=== PATIENT | male | born 1990 | race Caucasian/White ===

== ENCOUNTER 2020-06-09 18:36 | Emergency (ER) | payer BC ==
[2020-06-09] MEDS: Bacitracin Oint 1 GM U/D Packet TOP ONE (19:00)
[2020-06-09] MEDS: Bupivacaine 0.5% 10 ML SDV INJECT ONE (19:00)
[2020-06-09] MEDS: ceFAZolin 1 GM Vial ONE (20:08)
--- NOTE | 2020-06-09 20:10 | EDM.PDOC ---
ED HPI GENERAL MEDICAL PROBLEM - General Chief Complaint: Laceration Stated Complaint: CUT TO RT POINTER FINGER Time Seen by Provider: 06/09/20 19:35 Source of Information: Reports: Patient History Limitations: Reports: No Limitations - History of Present Illness INITIAL COMMENTS - FREE TEXT/NARRATIVE: 29-year-old male with a very deep laceration injury to his index finger on his right hand. On the rope wrapped around his finger at high tension, and dug into the palmar aspect of the finger. No other injury. Onset: Sudden Duration: Hour(s): (Within the last hour) Location: Reports: Upper Extremity, Right Associated Symptoms: Reports: No Other Symptoms right 1st finger Pain Score (Numeric/FACES): 7 - Related Data Allergies Allergy/AdvReac Type Severity Reaction Status Date / Time No Known Allergies Allergy Verified 06/09/20 18:59 Home Meds: Home Meds NK [No Known Home Meds] 06/09/20 [History] Past Medical History Musculoskeletal History: Reports: Other (See Below) Other Musculoskeletal History: left shoulder dislocation Neurological History: Reports: Concussion - Infectious Disease History Infectious Disease History: Reports: Chicken Pox Social & Family History - Tobacco Use Smoking Status *Q: Never Smoker - Caffeine Use Caffeine Use: Reports: Coffee, Soda - Recreational Drug Use Recreational Drug Use: No ED ROS GENERAL - Review of Systems Review Of Systems: See Below Constitutional: Denies: Fever, Chills Respiratory: Denies: Shortness of Breath Cardiovascular: Denies: Chest Pain GI/Abdominal: Denies: Abdominal Pain, Nausea, Vomiting Skin: Reports: Cyanosis (Patient has both cyanosis, pallor, and very poor capillary refill to the index finger distal to), Pallor Neurological: Reports: Paresthesia (Numbness of the distal finger) ED EXAM, SKIN/RASH Exam: See Below Exam Limited By: No Limitations General Appearance: Alert, No Apparent Distress, Anxious Head: Atraumatic Respiratory/Chest: No Respiratory Distress, Lungs Clear Cardiovascular: Regular Rate, Rhythm Extremities: Other (Exam is otherwise limited to the right hand. The patient has a 3.5 cm, very deep laceration across the PIP joint of the index finger on the right hand. There is macerated tissue, obvious destruction of the arterials and laceration of the peripheral sensory nerves. The distal finger is very dusky, almost no capillary refill and cyanotic.) Course - Vital Signs Last Recorded V/S: Last Vital Signs Temp 96.6 F L 06/09/20 19:01 Pulse 96 06/09/20 19:01 Resp 13 06/09/20 19:01 BP 152/85 H 06/09/20 19:01 Pulse Ox 96 06/09/20 19:01 - Orders/Labs/Meds Orders: Active Orders 24 hr Category Date Time Status Fingers Second Digit Rt F6 [CR] Stat Exams 06/09/20 19:03 Taken Meds: Medications Discontinued Medications Generic Name Dose Route Start Last Admin Trade Name Freq PRN Reason Stop Dose Admin Bacitracin 1 dose 06/09/20 18:55 06/09/20 19:00 Bacitracin Oint 1 Gm TOP 06/09/20 18:56 1 dose ONETIME ONE Administration Bupivacaine HCl 10 ml 06/09/20 18:55 06/09/20 19:00 Sensorcaine-Mpf 0.5% INJECT 06/09/20 18:56 10 ml ONETIME ONE Administration Cefazolin Sodium Confirm 06/09/20 20:04 06/09/20 20:08 Ancef Administered 06/09/20 20:05 Not Given Dose 1 gm .ROUTE .STK-MED ONE Cefazolin Sodium 1 gm/ Sodium 50 mls @ 100 mls/hr 06/09/20 19:54 06/09/20 20:12 Chloride IV 06/09/20 20:23 100 mls/hr ONETIME ONE Administration Sodium Chloride Confirm 06/09/20 20:06 06/09/20 20:13 Normal Saline Administered 06/09/20 20:07 Not Given Dose 50 mls @ as directed .ROUTE .STK-MED ONE - Re-Assessments/Exams Free Text/Narrative Re-Assessment/Exam: 06/09/20 20:57 0.5 digital Marcaine block was applied an x-ray of the finger was obtained which was negative for fracture. The wound was washed thoroughly, four 4-0 Ethilon sutures were used to loosely close the laceration and phone consultation with hand surgery in [place] was obtained. No vascular surgery was available so it was recommended he be sent to [place]. [facility] accepted the patient, it was recommended he fly but the patient wanted to go by car to avoid the high cost. He understands that this time may be detrimental, however he was starting to have some color of the finger and a small amount of capillary refill just prior to discharge. He was given 1 g of Ancef and a Tdap booster. Departure - Departure Time of Disposition: 20:50 Disposition: DC/Tfer to Other 70 Clinical Impression: Finger laceration Qualifiers: Encounter type: initial encounter Finger: index finger Damage to nail status: without damage Foreign body presence: without foreign body Laterality: right Qualified Code(s): S61.210A - Laceration without foreign body of right index finger without damage to nail, initial encounter - Discharge Information Instructions: Wound Care, Adult Referrals: PCP,None [Primary Care Provider] - Forms: ED Department Discharge Care Plan Goals: Go directly to [facility] in [place] to be evaluated by a vascular surgeon to repair your injured finger. Keeping the finger down may be more painful but may allow more circulation. Sepsis Event Note (ED) - Evaluation Sepsis Screening Result: No Definite Risk - Focused Exam Vital Signs: Vital Signs Temp Pulse Resp BP Pulse Ox 06/09/20 19:01 96.6 F L 96 13 152/85 H 96 06/09/20 18:46 96.6 F L 96 13 152/85 H 96 - My Orders Last 24 Hours: My Active Orders 06/09/20 19:03 Fingers Second Digit Rt F6 [CR] Stat - Assessment/Plan Last 24 Hours: My Active Orders 06/09/20 19:03 Fingers Second Digit Rt F6 [CR] Stat
[2020-06-09] MEDS: ceFAZolin 1 GM in Sodium Chloride 0.9% 50 ML IV ONE (20:12)
[2020-06-09] MEDS: Sodium Chloride 0.9% 50 ML ONE (20:13)
--- NOTE | 2020-06-10 09:00 | CR ---
Fingers Second Digit Rt F6 CLINICAL HISTORY: Trauma FINDINGS: There is a soft tissue laceration of the index finger. There is no underlying fracture seen. There is a small curvilinear radiopacity just dorsal to the PIP joint. This may represent foreign body. This could be some bony avulsion from ligamentous injury at the PIP joint IMPRESSION: Soft tissue laceration Curvilinear density dorsal to the PIP joint may represent foreign body or possibly ligamentous avulsion at the PIP joint
== END 2020-06-09 20:54 | disposition other institution (70) ==
LOC: JP.ED 18:36
DX: S61.210A Laceration without foreign body of right index finger without damage to nail, initial encounter (principal); W26.8XXA Contact with other sharp object(s), not elsewhere classified, initial encounter
CPT/HCPCS: 12002; 73140; 96365; 99284; J0690; J3490; J7050